=== PATIENT | female | born 1960 | race Caucasian/White ===

== ENCOUNTER 2016-12-19 19:05 | Emergency (ER) | payer OTHER ==
[~2016-12-19] VITALS: Ht 160 cm; Wt 68.0 kg
[~2016-12-19 19:05] MED LIST: ASCO500 PO; COQ1150C2 PO; LORT5TAB PO; OMEG600C2 PO; ONDA8 PO; RED600TA PO; VITA500T49 PO
[2016-12-19 19:09] VITALS: BP 117/83; PULSE 76; RESP 16; TEMP 98.6; O2SAT 98
--- NOTE | 2016-12-19 19:22 | PD ---
HPI Chief Complaint: Injury Time Seen by Provider: 19:18 Travel History International Travel<30 days: No Contact w/Intl Traveler<30days: No Traveled to known affect area: No History of Present Illness HPI 56-year-old female who since the emergency department having fallen off a stool in her kitchen while cleaning her Cabinets. Patient states she lost her balance and fell sideways and hit her foot, and her right forearm. Patient denies hitting her head or losing consciousness. She has no neck pain. Her arm pain is minimal. But her left foot is negative over 10 pain and she can barely bear weight on it. She has no abrasions or open wounds. She has no known drug allergies. PFSH Past Medical History Cancer: No Diabetes: No Hepatitis: No Hiatal Hernia: No Thyroid Disease: No ?: Not Past Surgical History Pacemaker: No Social History Alcohol Use: Yes Tobacco Use: No Substance Use: No Allergies-Medications (Allergen,Severity, Reaction): Coded Allergies: No Known Allergies (Unverified , 12/19/16) Reported Meds & Prescriptions Reported Meds & Active Scripts Active No Active Prescriptions or Reported Medications Review of Systems General / Constitutional: No: Fever Eyes: No: Visual changes HENT: No: Headaches Cardiovascular: No: Chest Pain or Discomfort Respiratory: No: Shortness of Breath Gastrointestinal: No: Abdominal Pain Genitourinary: No: Dysuria Musculoskeletal: Positive: Arthralgias (see history present illness.), Limited ROM, Pain Skin: No Rash Neurologic: No: Weakness Psychiatric: No: Depression Endocrine: No: Polydipsia Hematologic/Lymphatic: No: Easy Bruising Physical Exam Narrative GENERAL: Patient appears in no acute distress. SKIN: Warm and dry. Normal color. Normal turgor. HEAD: Atraumatic. Normocephalic. EYES: Pupils equal and round. No scleral icterus. No injection or drainage. ENT: No nasal bleeding or discharge. Mucous membranes pink and moist. No dental injury. Airway is patent. Pharynx is normal. NECK: Trachea midline. No bony tenderness or step-off. Range of motion is full and supple. CARDIOVASCULAR: Regular rate and rhythm. RESPIRATORY: No accessory muscle use. Clear to auscultation. Breath sounds equal bilaterally. GASTROINTESTINAL: Abdomen soft, non-tender, nondistended. Hepatic and splenic margins not palpable. MUSCULOSKELETAL: Extremities without clubbing, cyanosis, or edema. Left foot shows moderate amount of ecchymosis and swelling to the distal dorsal lateral surface but sparing the toes. Ankle and lower leg are unremarkable. Patient has pain with palpation along the dorsal lateral distal foot. Capillary refill is brisk in the toes of the left foot. Plantar and dorsiflexion are intact. NEUROLOGICAL: Awake and alert. No obvious cranial nerve deficits. Motor grossly within normal limits. Five out of 5 muscle strength in the arms and legs. Normal speech. PSYCHIATRIC: Appropriate mood and affect; insight and judgment normal. Data Data Last Documented VS Vital Signs Date Time Temp Pulse Resp B/P Pulse Ox O2 Delivery O2 Flow Rate FiO2 12/19/16 19:20 Room Air 12/19/16 19:09 98.6 76 16 117/83 98 Orders Foot, Complete ([id number]) (12/19/16 19:22) Support Splint (12/19/16 20:03) Crutches (12/19/16 20:03) MDM Medical Decision Making Medical Screen Exam Complete: Yes Emergency Medical Condition: Yes Differential Diagnosis Fall. Left foot contusion. Left foot fracture. Narrative Course Patient is medically stable at time of exam. Ice pack is applied to the left foot. X-ray of the left foot is ordered. Patient has a displaced longitudinal fracture of the fifth metatarsal of the left foot with no involvement of the joint space on either end. Per wet read. Call was placed to Dr. Rodriguez, the banana grader on-call the patient is discussed. Patient is placed in a posterior short leg splint with no weightbearing and crutches. Patient is given tramadol 50 mg one every 6 hours when necessary pain #20. Patient is to use ice and elevation as much as possible. Patient is to call Dr. Rodriguez's office tomorrow to set up follow-up for . Patient is to not have any weightbearing on the left foot at all. Diagnosis Primary Impression: Closed nondisplaced fracture of fifth left metatarsal bone Qualified Code: S92.355A - Closed nondisplaced fracture of fifth metatarsal bone of left foot, initial encounter Referrals: Gela Rodriguez DPM Patient Instructions: Crutch Instructions (ED), Foot Fracture in Adults (ED), General Instructions Additional Instructions: Patient is placed in a posterior short leg splint with no weightbearing and crutches. Patient is given tramadol 50 mg one every 6 hours when necessary pain #20. Patient is to use ice and elevation as much as possible. Patient is to call Dr. Rodriguez's office tomorrow to set up follow-up for . Patient is to not have any weightbearing on the left foot at all. Med/Other Pt SpecificInfo: Prescription(s) given Scripts No Active Prescriptions or Reported Meds Disposition: DISCHARGE HOME Condition: Stable Nomi Krishnamurthy Dec 19, 2016 19:22
--- NOTE | 2016-12-19 20:07 | RADHPO ---
EXAM DATE/TIME: 12/19/2016 19:29 [facility] COMPARISON: No previous studies available for comparison. INDICATIONS : Left foot pain post fall off of a stool today. MEDICAL HISTORY : None. SURGICAL HISTORY : None. ENCOUNTER: Initial ACUITY: 1 day PAIN SCORE: 5/10 LOCATION: Left foot. FINDINGS: An oblique nondisplaced fracture is identified in the shaft of the fifth metatarsal. Metatarsals and tarsometatarsal articulations is otherwise intact. CONCLUSION: Fracture left fifth metatarsal. Pavan Tamayo MD on December 19, 2016 at 20:04 Board Certified Radiologist. This report was verified electronically.
[2016-12-19] MEDS ORDERED: TRAM50TA PO (20:09)
== END 2016-12-19 20:39 | disposition home or self-care (01) ==
LOC: PHEFT 19:05
DX: S92.355A Nondisplaced fracture of fifth metatarsal bone, left foot, initial encounter for closed fracture (principal); W17.89XA Other fall from one level to another, initial encounter; Y93.E9 Activity, other interior property and clothing maintenance; Y92.010 Kitchen of single-family (private) house as the place of occurrence of the external cause; Y99.8 Other external cause status
CPT/HCPCS: 29515; 73630; 99283; E0113